=== PATIENT | male | born 1995 | race African-American/Black ===

== ENCOUNTER 2024-05-05 12:27 | Emergency (ER) | payer SELFPAY ==
[~2024-05-05] VITALS: Ht 175.3 cm; Wt 68.0 kg
[2024-05-05 12:28] VITALS: O2SAT 98
[2024-05-05] MEDS ORDERED: LORAZEPAM 2MG/ML INJ ONE (12:36)
[2024-05-05] MEDS: LORAZEPAM 2MG/ML INJ IV ONE (12:53)
[2024-05-05] MEDS: SODIUM CHLORIDE 0.9% 1,000 ML IV ONE ×2 (12:54→15:34)
[2024-05-05] MEDS: LEVETIRACETAM 1000MG PREMIX 100 ML IV ONE (12:54)
[2024-05-05 13:06] LABS: BASOPHILS % 0.2 % (0.0-2.0); DIFFERENTIAL COMMENT 0; HEMATOCRIT. 56.1 % (42.0-52.0); HEMOGLOBIN. 16.9 g/dL (14.0-18.0); LYMPHOCYTES % 7.5 % (20.0-50.0); MEAN CORPUSCULAR HEMOGLOBIN 24.7 pg (28.0-32.0); MEAN CORPUSCULAR HGB CONC 30.1 g/dL (31.0-37.0); MEAN CORPUSCULAR VOLUME 82.1 fL (80.0-94.0); MEAN PLATELET VOLUME 9.9 fl (7.4-10.4); MONOCYTES % 7.9 % (2.0-8.0); NEUTROPHILS % 84.4 % (40.0-76.0); PLATELET 234 x1000/uL (130-400); RED BLOOD CELL COUNT 6.84 mill/uL (4.7-6.1); RED CELL DISTRIBUTION WIDTH 17.5 % (11.6-14.6); WHITE BLOOD COUNT 27.6 x1000/uL (4.5-11.0)
[2024-05-05 13:17] LABS: INR 0.9; PROTHROMBIN TIME 10.6 sec (9.6-11.0)
[2024-05-05 13:20] LABS: CHLORIDE 103 mEq/L (98-107); POTASSIUM 3.7 mEq/L (3.5-5.1); SODIUM 145 mEq/L (136-145)
[2024-05-05 13:21] LABS: CALCIUM 10.7 mg/dL (8.7-10.4); CARBON DIOXIDE 15 mEq/L (21-32)
[2024-05-05 13:26] LABS: CREATININE 1.6 mg/dL (0.6-1.3); GLUCOSE 135 mg/dL (70-105); UREA NITROGEN BLOOD 13 mg/dL (9-23)
[2024-05-05 13:28] LABS: ALANINE AMINOTRANSFERASE 80 IU/L (10-49); ALBUMIN 5.7 g/dL (3.2-4.8); ASPARTATE AMINOTRANSFERASE 73 IU/L (<34); BILIRUBIN DIRECT 0.2 mg/dL (<=3.0)
[2024-05-05 13:29] LABS: PROTEIN TOTAL 9.1 g/dL (6.0-8.3)
[2024-05-05] MEDS: PIPERACILLIN/TAZO 3.375G/50ML 50 ML IV ONE (13:33)
[2024-05-05 13:35] LABS: ETHANOL BLOOD < 10 mg/dL (<10); TROPONIN I HIGH SENSITIVITY 5664 ng/L (3.0-53)
[2024-05-05 13:42] LABS: AMMONIA 189 uMol/L (<32)
[2024-05-05 13:44] LABS: LACTIC ACID 22.1 mmol/L (0.4-2.0)
[2024-05-05] MEDS: VANCOMYCIN 1G PREMIX 200 ML IV ONE (14:41)
[2024-05-05 15:39] LABS: AMMONIA < 17 uMol/L (<32)
[2024-05-05 15:49] LABS: TROPONIN I HIGH SENSITIVITY 5061 ng/L (3.0-53)
[2024-05-05 16:59] LABS: CLARITY URINE CLEAR (CLEAR); COLOR URINE YELLOW (YELLOW); GLUCOSE URINE NEGATIVE (NEGATIVE); KETONES URINE NEGATIVE (NEGATIVE); LEUKOCYTE ESTERASE URINE NEGATIVE (NEGATIVE); NITRITE URINE NEGATIVE (NEGATIVE); OCCULT BLOOD URINE 1+ (NEGATIVE); PH URINE 7.5 (4.5-8.0); PROTEIN URINE 2+ (NEGATIVE); SPECIFIC GRAVITY URINE 1.056 (1.005-1.030); UROBILINOGEN URINE 0.2 E.U./dL (0.2-1.0)
[2024-05-05 17:08] LABS: *AMPHETAMINES SCREEN URINE PRESUMPTIVE POSITIVE (NEGATIVE); *BARBITURATES SCREEN URINE NEGATIVE (NEGATIVE); *BENZODIAZEPINES SCREEN URINE NEGATIVE (NEGATIVE); *COCAINE SCREEN URINE NEGATIVE (NEGATIVE); CANNABINOID URINE SCREEN PRESUMPTIVE POSITIVE (NEGATIVE); ECSTASY MDMA SCREEN URINE NEGATIVE (NEGATIVE); METHADONE URINE SCREEN NEGATIVE (NEGATIVE); OPIATES URINE SCREEN NEGATIVE (NEGATIVE); PHENCYCLIDINE URINE SCREEN NEGATIVE (NEGATIVE)
[2024-05-05 18:48] LABS: BACTERIA URINE TRACE; SQUAMOUS EPITHELIAL CELL URINE RARE /lpf (RARE/1+); WBC URINE 0-2 /hpf (0-2)
[2024-05-05] MEDS: IOHEXOL-350 100 ML BOTTLE ONE (22:11)
[2024-05-06 01:25] LABS: TROPONIN I HIGH SENSITIVITY 9738 ng/L (3.0-53)
[2024-05-06] MEDS ORDERED: ENOXAPARIN 80MG/0.8ML SYR SUBCUT ONE (01:45)
[2024-05-06] MEDS ORDERED: HEPARIN 25,000 UNITS PREMIX 250 ML IV SCH (01:45)
[2024-05-06] MEDS ORDERED: HEPARIN BOLUS PRN aPTT <30 IV ×2 (02:00)
[2024-05-06] MEDS ORDERED: HEPARIN BOLUS PRN aPTT 30-44 IV ×2 (02:00)
[2024-05-06] MEDS ORDERED: HEPARIN 60 UNITS/KG BOLUS IV SCH (02:00)
[2024-05-06] MEDS: HEPARIN 60 UNITS/KG BOLUS IV NR (02:10)
[2024-05-06] MEDS: HEPARIN 25,000 UNITS PREMIX 250 ML IV SCH (02:14)
[2024-05-06 08:30] LABS: BASOPHILS % 0.5 % (0.0-2.0); DIFFERENTIAL COMMENT 0; EOSINOPHILS % 0.1 % (0.0-5.0); HEMATOCRIT. 46.9 % (42.0-52.0); HEMOGLOBIN. 14.9 g/dL (14.0-18.0); LYMPHOCYTES % 10.8 % (20.0-50.0); MEAN CORPUSCULAR HEMOGLOBIN 24.4 pg (28.0-32.0); MEAN CORPUSCULAR HGB CONC 31.7 g/dL (31.0-37.0); MEAN PLATELET VOLUME 10.1 fl (7.4-10.4); MONOCYTES % 4.1 % (2.0-8.0); NEUTROPHILS % 84.5 % (40.0-76.0); PLATELET 175 x1000/uL (130-400); RED CELL DISTRIBUTION WIDTH 16.1 % (11.6-14.6); WHITE BLOOD COUNT 13.2 x1000/uL (4.5-11.0)
[2024-05-06] MEDS ORDERED: IPRATROPIUM/ALBUTEROL 0.5-3(2.5)MG/3ML NEB HHN PRN (08:30)
[2024-05-06 08:39] LABS: CARBON DIOXIDE 24 mEq/L (21-32); CHLORIDE 104 mEq/L (98-107); POTASSIUM 3.6 mEq/L (3.5-5.1); SODIUM 141 mEq/L (136-145)
[2024-05-06 08:40] LABS: CALCIUM 9.8 mg/dL (8.7-10.4)
[2024-05-06 08:45] LABS: CREATININE 0.9 mg/dL (0.6-1.3); GLUCOSE 110 mg/dL (70-105); TRIGLYCERIDE 95 mg/dL (0-150); UREA NITROGEN BLOOD 9 mg/dL (9-23)
[2024-05-06 08:46] LABS: LDL CHOLESTEROL 71 mg/dL (5-100)
[2024-05-06 08:47] LABS: HDL CHOLESTEROL 66 mg/dL (>55)
[2024-05-06] MEDS: LACTULOSE 20G/30ML UDC PO SCH (09:00)
[2024-05-06] MEDS: PANTOPRAZOLE SODIUM 40 MG/VIAL IV SCH (09:00)
[2024-05-06 09:11] LABS: TROPONIN I HIGH SENSITIVITY 7039 ng/L (3.0-53)
[2024-05-06] MEDS: LEVETIRACETAM 500MG PREMIX 100 ML IV SCH (10:00)
[2024-05-06] MEDS: ASPIRIN 81MG EC TABLET PO NR (10:00)
[2024-05-06 10:30] VITALS: TEMP 36.7
[2024-05-06] MEDS: FOLIC ACID 1 MG, THIAMINE HCL 100 MG, MVI, ADULT NO.1 10 ML in DEXTROSE 5% WATER 1,000 ML IV ONE (10:30)
[2024-05-06] MEDS: METOPROLOL TARTRATE 25MG TABLET PO NR (11:58)
[2024-05-06 12:02] LABS: CREATINE KINASE 999 IU/L (46-171)
[2024-05-06] MEDS: NITROGLYCERIN OINT 1GM/INCH UDPKT TD SCH (14:42)
[2024-05-06] MEDS: CHLORDIAZEPOXIDE 5 MG CAPSULE PO SCH (14:42)
[2024-05-06 15:01] LABS: CHOLESTEROL 165 mg/dL (<200)
[2024-05-06] MEDS ORDERED: LORAZEPAM 2MG/ML INJ IV PRN (15:30)
[2024-05-06] MEDS: ENOXAPARIN 60MG/0.6ML SYR SUBCUT NR (17:12)
[2024-05-06 17:15] VITALS: BP 131/82; PULSE 98; RESP 20; O2SAT 98
[2024-05-06 18:15] LABS: TROPONIN I HIGH SENSITIVITY 5766 ng/L (3.0-53)
[2024-05-06 18:16] LABS: LACTIC ACID 3.9 mmol/L (0.4-2.0)
[2024-05-06] MEDS ORDERED: METOPROLOL TARTRATE 25MG TABLET PO SCH (21:00)
[2024-05-06] MEDS ORDERED: PIPERACILLIN/TAZO 3.375G/50ML 50 ML IV SCH (22:00)
[2024-05-07] MEDS ORDERED: ASPIRIN 81MG EC TABLET PO SCH (09:00)
== END 2024-05-07 20:00 | disposition admitted as inpatient to this hospital (09) ==
LOC: ER 13:10 → EDBEDREQSVC 15:14 → EDBEDREQ 15:14 → EDBEDREQTM 15:14 → EDBEDREQ 15:15 → ER 20:00 → EDBEDREQSVC 05-06 09:03 → ER 05-07 20:00
DX: A41.9 Sepsis, unspecified organism (principal); I21.4 Non-ST elevation (NSTEMI) myocardial infarction; R41.82 Altered mental status, unspecified; R55 Syncope and collapse; R56.9 Unspecified convulsions; Z20.822 Contact with and (suspected) exposure to COVID-19; Z79.899 Other long term (current) drug therapy; W18.30XA Fall on same level, unspecified, initial encounter; Y93.89 Activity, other specified; Y92.89 Other specified places as the place of occurrence of the external cause; Y99.8 Other external cause status
CPT/HCPCS: 80061; 80076; 80305; 80048; 81003; 80320; 82140; 82550; 83880; 83605; 83690; 83735; 85025; 85610; 85730; 87040; 84484; 87804 ×2; 36415; 84145; 71045; 71275; 70450; 72125; 93005 ×3; 96367 ×2; 96365; 96375 ×2; 99291; 87426; 76770; 96368; 96372; Q9967; J1953 ×2; J2060; J2543; J3370; J7030; J1650; J3490 ×2; J1644 ×2; J2470; J3411; J7070; G0480